=== PATIENT | female | born 1990 | race Two or more races ===

== ENCOUNTER 2018-09-14 15:26 | Emergency (ER) | payer OTHER ==
[~2018-09-14] VITALS: Ht 154.9 cm; Wt 63.5 kg
== END 2018-09-14 23:04 | disposition home or self-care (01) ==
LOC: ER 15:26 → EDBD 15:44 → ER 15:44
DX: N83.291 Other ovarian cyst, right side (principal); R10.31 Right lower quadrant pain; R10.11 Right upper quadrant pain; R10.2 Pelvic and perineal pain